=== PATIENT | female | born 1975 | race Caucasian/White ===

== ENCOUNTER 2017-04-28 19:26 | Emergency (ER) | payer OTHER ==
[~2017-04-28] VITALS: Ht 175.3 cm; Wt 89.8 kg
[2017-04-28 19:54] VITALS: BP 133/91
== END 2017-04-28 19:52 | disposition left against medical advice (07) ==
LOC: ED 19:26
DX: Z53.21 Procedure and treatment not carried out due to patient leaving prior to being seen by health care provider (principal)